=== PATIENT | female | born 1980 | race Caucasian/White ===

== ENCOUNTER → 2017-06-28 | Outpatient (CLI) | payer OTHER | LOC: M RAD 13:41 | DX: N92.4 Excessive bleeding in the premenopausal period (principal) | CPT/HCPCS: 76856 ==

== ENCOUNTER → 2017-07-02 | Outpatient (CLI) | payer OTHER ==
[2017-07-02 19:15] LABS: FREE THYROXINE INDEX 2.7 % (1.3-4.8); THYROID STIMULATING HORMONE 0.761 uIU/ML (0.358-3.740); THYROXINE (T4) 8.6 UG/DL (4.5-12.0)
[2017-07-04 10:53] LABS: PROLACTIN 14.9 NG/ML
[2017-07-04 10:55] LABS: LUTEINIZING HORMONE 5.9 mIU/mL
[2017-07-04 10:56] LABS: FOLLICLE STIMULATING HORMONE 7.6 mIU/mL
[2017-07-05 08:46] LABS: T UPTAKE 31 % (30-39)
== END ==
LOC: M LRY 16:17
DX: N92.4 Excessive bleeding in the premenopausal period (principal)
CPT/HCPCS: 83001

== ENCOUNTER → 2017-07-20 | Outpatient (CLI) | payer OTHER ==
[2017-07-20 12:26] LABS: ESTRADIOL 158.9 PG/ML
[2017-07-21 07:04] LABS: PROGESTERONE 10.4 NG/ML
== END ==
LOC: M LRY 10:13
DX: N92.4 Excessive bleeding in the premenopausal period (principal)

== ENCOUNTER → 2017-08-03 | Outpatient (REF) | payer OTHER ==
[2017-08-06 14:28] LABS: HPV HYBRID CAPTURE II Negative (Negative)
== END ==
LOC: M LAB REF 13:36
DX: Z12.4 Encounter for screening for malignant neoplasm of cervix (principal)
CPT/HCPCS: G0123

== ENCOUNTER → 2017-08-31 | Outpatient (CLI) | payer OTHER ==
[~2017-08-31] MED LIST: ISOVUE-370 76% 100ML VIAL (Q9967) As Ordered
== END ==
LOC: M RADPRO 12:09
DX: D25.9 Leiomyoma of uterus, unspecified (principal); N97.9 Female infertility, unspecified
CPT/HCPCS: 58340

== ENCOUNTER 2017-11-01 13:02 | Day surgery (SDC) | payer OTHER ==
[2017-11-01] MEDS: LR 1,000 ML IV (13:32)
[2017-11-01 13:46] LABS: MEAN CORPUSCULAR HEMOGLOBIN 15.4 pg (27.0-33.0); MEAN CORPUSCULAR HGB CONC 24.6 g/dl (32.0-36.5); MEAN CORPUSCULAR VOLUME 62.6 fl (80.0-96.0); PLATELET COUNT, AUTOMATED 312 10^3/uL (150-450); RED BLOOD COUNT 4.47 10^6/uL (4.00-5.40); RED CELL DISTRIBUTION WIDTH 18.2 % (11.5-14.5); WHITE BLOOD COUNT 7.1 10^3/uL (4.0-10.0)
[2017-11-01 13:48] LABS: CONTROL LINE HCG INT CTR LINE PRESENT; HCG, SERUM QUALITATIVE NEGATIVE (NEGATIVE)
[2017-11-01] MEDS ORDERED: LIDOCAINE 2% INJ 100 MG/5 ML SDV (FOR ANES.) As Ordered (14:05)
[2017-11-01] MEDS ORDERED: PROPOFOL 200 MG/20 ML VIAL As Ordered (14:05)
[2017-11-01] MEDS ORDERED: KETOROLAC 60 MG/2 ML VIAL (J1885) As Ordered (14:05)
[2017-11-01] MEDS ORDERED: dexameTHASONE 4 MG/ML 1ML VIAL (J1100) As Ordered (14:05)
[2017-11-01] MEDS ORDERED: ONDANSETRON 4MG/2ML VIAL (J2405) As Ordered (14:05)
[2017-11-01] MEDS ORDERED: fentaNYL 100 MCG/2 ML INJECTION (J3010) As Ordered (14:06)
[2017-11-01] MEDS ORDERED: MIDAZOLAM INJ 2 MG/2 ML VIAL (J2250) As Ordered (14:06)
[2017-11-01 14:16] LABS: POS COUNT POS FLAG
[2017-11-01 14:17] LABS: HEMOGLOBIN 6.9 g/dl (12.0-15.5)
[2017-11-01] MEDS ORDERED: GLYCOPYRROLATE INJ 0.2 MG/ML 2 ML VIAL As Ordered (14:40)
[2017-11-01] MEDS: PERCOCET 5MG/325MG TAB PO (16:14)
[2017-11-01] MEDS ORDERED: LR 1,000 ML IV (16:15)
[2017-11-01] MEDS ORDERED: PERCOCET 5MG/325MG TAB PO (16:15)
[2017-11-01] MEDS: ONDANSETRON 4MG/2ML VIAL (J2405) IV (16:15)
[2017-11-01] MEDS ORDERED: fentaNYL 100 MCG/2 ML INJECTION (J3010) IV (16:15)
[2017-11-01 16:49] LABS: HEMATOCRIT 23.9 % (36.0-47.0); MEAN CORPUSCULAR HEMOGLOBIN 15.5 pg (27.0-33.0); MEAN CORPUSCULAR HGB CONC 24.7 g/dl (32.0-36.5); MEAN CORPUSCULAR VOLUME 62.7 fl (80.0-96.0); PLATELET COUNT, AUTOMATED 266 10^3/uL (150-450); RED BLOOD COUNT 3.81 10^6/uL (4.00-5.40); RED CELL DISTRIBUTION WIDTH 17.8 % (11.5-14.5); WHITE BLOOD COUNT 7.8 10^3/uL (4.0-10.0)
[2017-11-01 16:53] LABS: HEMOGLOBIN 5.9 g/dl (12.0-15.5)
[2017-11-01] MEDS ORDERED: ACETAMINOPHEN 325 MG TAB As Ordered (17:23)
[2017-11-01] MEDS ORDERED: diphenhydrAMINE 25 MG CAP As Ordered (17:23)
[2017-11-01] MEDS: ACETAMINOPHEN TAB 650MG DOSE (2X325MG) PO (17:30)
[2017-11-01] MEDS: diphenhydrAMINE 25 MG CAP PO (17:30)
[2017-11-01 19:07] LABS: IMMEDIATE SPIN CROSSMATCH 1 2
[2017-11-01] MEDS ORDERED: KETOROLAC 30 MG/ML VIAL (J1885) IV (20:00)
== END 2017-11-01 21:44 | disposition home or self-care (01) ==
LOC: M SDC 13:02
DX: N84.0 Polyp of corpus uteri (principal); Z79.899 Other long term (current) drug therapy; A60.00 Herpesviral infection of urogenital system, unspecified
CPT/HCPCS: 58558

== ENCOUNTER → 2018-09-05 | Outpatient (CLI) | payer OTHER ==
[~2018-09-05] MED LIST changes: +ACYC400T PO; -ISOVUE-370 76% 100ML VIAL (Q9967) As Ordered; +PERCOCET PO
[2018-09-05 11:46] LABS: BASO # 0.1 10^3/uL (0.0-0.2); BASO % 1.4 % (0.0-1.0); EOS # 0.1 10^3/uL (0.0-0.50); EOS % 1.4 % (0.0-3.0); HEMATOCRIT 34.9 % (36.0-47.0); HEMOGLOBIN 11.1 g/dl (12.0-15.5); LYMPH # 1.6 10^3/uL (1.5-4.5); LYMPH % 36.5 % (24.0-44.0); MEAN CORPUSCULAR HEMOGLOBIN 29.4 pg (27.0-33.0); MEAN CORPUSCULAR HGB CONC 31.8 g/dl (32.0-36.5); MEAN CORPUSCULAR VOLUME 92.3 fl (80.0-96.0); MONO # 0.4 10^3/uL (0.0-0.8); MONO % 8.4 % (0.0-5.0); NEUTROPHILS # 2.2 10^3/uL (1.8-7.7); NEUTROPHILS % 52.1 % (36.0-66.0); PLATELET COUNT, AUTOMATED 261 10^3/uL (150-450); RED BLOOD COUNT 3.78 10^6/uL (4.00-5.40); WHITE BLOOD COUNT 4.3 10^3/uL (4.0-10.0)
[2018-09-05 12:23] LABS: FREE T4 0.88 NG/DL (0.76-1.46); PROLACTIN 15.6 NG/ML; THYROID STIMULATING HORMONE 0.742 uIU/ML (0.358-3.740)
== END ==
LOC: M LRY 09:07
PROVIDERS: ATTEND Obstetrics & Gynecology
DX: N92.1 Excessive and frequent menstruation with irregular cycle (principal)

== ENCOUNTER → 2018-10-13 | Outpatient (CLI) | payer OTHER ==
--- NOTE | 2018-10-13 11:19 | REP ---
Clinical: Left first toe pain Technique: AP, lateral, bilateral oblique views left foot . Findings: The osseous structures and joint spaces are intact and normal. There is no evidence for acute fracture or dislocation. Surrounding soft tissues are unremarkable. No subcutaneous emphysema or radiodense foreign body. Impression: Normal left foot series. Electronically Signed by Harry Liu MD 10/13/2018 11:11 A
== END ==
LOC: M RAD 10:37
PROVIDERS: ATTEND Nurse Practitioner Family
DX: M25.572 Pain in left ankle and joints of left foot (principal)

== ENCOUNTER → 2018-10-16 | Outpatient (CLI) | payer OTHER ==
[~2018-10-16] MED LIST changes: +PROHANCE 279.3MG/ML 15ML VIAL (A9576) As Ordered ONE
--- NOTE | 2018-10-17 07:00 | REP ---
MRI PELVIS WITH AND WITHOUT CONTRAST: TECHNIQUE: Multiple sequences obtained in the axial, coronal, and sagittal planes prior to and following the intravenous administration of 11 mL ProHance. Uterus measures approximately 11.4 x 8.3 x 7.9 cm. There is a large heterogeneous mass in the uterus. It measures 6.7 x 5.2 x 5.4 cm. It is hypointense on T1 and on T2 there is predominantly heterogeneous hypointensity, but there are scattered ill-defined foci of T2 hyperintensity. There is mild diffuse heterogeneous enhancement. The mass obliterates the endometrial cavity. This most likely represents a leiomyoma. 7 mm nabothian cyst is seen in the anterior cervix. Ovaries are normal in size with no mass or cyst. There is a very mild amount of free fluid in the cul-de-sac, which is likely physiologic in nature. No adenopathy is seen in the pelvis. Visualized osseous structures demonstrate normal bone marrow signal. There are two or three hypointense foci in the left side of the fibroid probably representing calcifications. Scattered cystic T2 hyperintensity within the fibroid is compatible with cystic degeneration. IMPRESSION: Enlarged uterus containing a large heterogeneous mass most consistent with a large leiomyoma, as discussed in detail above. This obliterates the endometrial cavity. There are two or three hypointense foci in the left side of the fibroid probably representing calcifications. Scattered cystic T2 hyperintensity within the fibroid is compatible with cystic degeneration. Electronically Signed by Marcello Garcia MD 10/18/2018 10:00 A
== END ==
LOC: M RAD 10:40
PROVIDERS: ATTEND Surgery Vascular Surgery
DX: D25.0 Submucous leiomyoma of uterus (principal); N88.8 Other specified noninflammatory disorders of cervix uteri
CPT/HCPCS: 72197; A9576

== ENCOUNTER → 2018-10-25 | Outpatient (CLI) | payer OTHER ==
[~2018-10-25] MED LIST changes: -PROHANCE 279.3MG/ML 15ML VIAL (A9576) As Ordered ONE
[2018-10-25 11:42] LABS: BASO % 0.8 % (0.0-1.0); EOS # 0.1 10^3/uL (0.0-0.5); EOS % 1.2 % (0.0-3.0); HEMATOCRIT 25.9 % (36.0-47.0); HEMOGLOBIN 7.4 g/dl (12.0-15.5); LYMPH # 1.2 10^3/uL (1.5-5.0); LYMPH % 24.9 % (24.0-44.0); MEAN CORPUSCULAR HEMOGLOBIN 26.5 pg (27.0-33.0); MEAN CORPUSCULAR HGB CONC 28.6 g/dl (32.0-36.5); MEAN CORPUSCULAR VOLUME 92.8 fl (80.0-96.0); MONO # 0.4 10^3/uL (0.0-0.8); NEUTROPHILS # 3.2 10^3/uL (1.5-8.5); NEUTROPHILS % 64.9 % (36.0-66.0); PLATELET COUNT, AUTOMATED 366 10^3/uL (150-450); RED BLOOD COUNT 2.79 10^6/uL (4.00-5.40); WHITE BLOOD COUNT 4.9 10^3/uL (4.0-10.0)
== END ==
LOC: M LRY 10:07
PROVIDERS: ATTEND Obstetrics & Gynecology
DX: N92.1 Excessive and frequent menstruation with irregular cycle (principal)

== ENCOUNTER → 2018-11-01 | Outpatient (REF) | payer OTHER ==
[2018-11-01 12:57] LABS: BASO # 0.1 10^3/uL (0.0-0.2); BASO % 1.2 % (0.0-1.0); EOS # 0.1 10^3/uL (0.0-0.5); HEMATOCRIT 35.5 % (36.0-47.0); HEMOGLOBIN 10.1 g/dl (12.0-15.5); LYMPH # 1.7 10^3/uL (1.5-5.0); LYMPH % 34.3 % (24.0-44.0); MEAN CORPUSCULAR HEMOGLOBIN 26.9 pg (27.0-33.0); MEAN CORPUSCULAR HGB CONC 28.5 g/dl (32.0-36.5); MEAN CORPUSCULAR VOLUME 94.4 fl (80.0-96.0); MONO # 0.4 10^3/uL (0.0-0.8); MONO % 7.5 % (0.0-5.0); NEUTROPHILS # 2.8 10^3/uL (1.5-8.5); NEUTROPHILS % 55.8 % (36.0-66.0); PLATELET COUNT, AUTOMATED 401 10^3/uL (150-450); RED BLOOD COUNT 3.76 10^6/uL (4.00-5.40)
== END ==
LOC: M LRY 11:17 → M LABDRAWC 11:17
PROVIDERS: ATTEND Obstetrics & Gynecology
DX: N92.1 Excessive and frequent menstruation with irregular cycle (principal)

== ENCOUNTER → 2018-11-07 | Outpatient (POV) | payer OTHER ==
[~2018-11-07] VITALS: Ht 152.4 cm; Wt 56.8 kg
[2018-11-07 13:40] VITALS: BP 120/66
--- NOTE | 2018-11-08 11:12 | IRCOV ---
[facility] IR Consult Office Visit IR Consult Office Visit DATE: Nov 07, 2018 REASON FOR CONSULTATION/CHIEF COMPLAINT: Menorrhagia. HISTORY OF PRESENT ILLNESS: 38-year-old female presents with menorrhagia for the last 4 years. She describes bleeding every month for at least 15 days where she is physically restricted to the bathroom and cannot get off the toilet. Soaks through pads and packets of tampons within the hour and is unable to leave the house because of such heavy bleeding. She's in constant fear of soaking through clothes. She also describes severe cramping with the periods which is unbearable. She has been on Provera for some years however desires to get and has recently come off Provera. She describes getting lightheaded and almost passing out with her periods. She has required blood transfusions in the past and is on iron tablets. No prior pregnancies or miscarriages. She has had hysteroscopic fibroid removal in the past. Prior Pap smears were negative. No fevers or chills. No loss of appetite or change in weight. No deep vein thrombosis in the legs. ALLERGIES: Please see below. HOME MEDICATIONS: Please see below. PAST MEDICAL HISTORY: 1. Fibroids 2. Kidney stones PAST SURGICAL HISTORY: 1. Lithotripsy 2. Hysteroscopy with myomectomy FAMILY HISTORY: Nonsignificant. SOCIAL HISTORY: Denies smoking, drugs or alcohol. REVIEW OF SYSTEMS: Otherwise negative PHYSICAL EXAMINATION: VITAL SIGNS: Please see below. GENERAL APPEARANCE: Appears well. Comfortable at rest. HEENT: No scleral icterus. RESPIRATORY: Symmetric breath sounds. CARDIOVASCULAR: Normal rate. ABDOMEN: Mildly distended. Soft nontender. No rebound or guarding. EXTREMITIES: Moving all 4 extremities. Calf soft nontender. No pedal edema no varicosities. NEUROLOGICAL: Alert and oriented. PSYCHIATRIC: Appropriate to circumstance. LABORATORY DATA: 11/01/2018 hemoglobin 10.1 hematocrit 35.5 WBC 5.0 platelets 401 09/05/2018 TSH 0.7 T4 0.8 Imaging: I personally reviewed the MRI pelvis from October 2018. There is a large T1 dark and T2 heterogeneous mass filling the endometrial cavity. The endometrial lining is not visible. No T2 hyperintensities in the myometrium to suggest adenomyosis. The uterus is enlarged and distended. ASSESSMENT/PLAN: Given this patient's desire for and literature available on improved pregnancies post myomectomy, I decided to discuss this case further with patient's ENVIRONMENTAL CONSULTANT Dr. Pyle. After this discussion, it is understood that given the size and location of the fibroid she would require open laparotomy and a vertical incision for fibroid removal. This would be a long and technically challenging surgery after which, the uterus would be much weakened, scarred and at risk of rupture from future pregnancies. We feel at this time that fibroid embolization to shrink the fibroid with or without future myomectomy may be a better option for the patient for desired future fertility. Therefore I will go ahead and schedule the patient for the procedure. I spent 30 minutes in consultation with the patient. Thank you for this referral. Allergies Coded Allergies: Kiwi (Verified Allergy, Intermediate, lips and tongue tingle, 10/25/17) Home Medications Scheduled Acyclovir (Acyclovir), 400 MG PO DAILY, (Reported) Scheduled PRN Oxycodone/Acetaminophen (Oxycodone-Acetaminophen 5-325), 1 TAB PO Q6-8HP PRN for PAIN VS, I&O, 24H, Fishbone Vital Signs/I&O Vital Signs Date Time Temp Pulse Resp B/P (MAP) Pulse Ox O2 Delivery O2 Flow Rate FiO2 11/07/18 13:40 98.9 85 16 120/66 (84) 100 DIAZ KRAUSE MD Nov 08, 2018 11:12
== END ==
LOC: M IRPOV 13:41
PROVIDERS: ATTEND Radiology Diagnostic Radiology
DX: N92.0 Excessive and frequent menstruation with regular cycle (principal); N94.6 Dysmenorrhea, unspecified; D25.9 Leiomyoma of uterus, unspecified; Z87.442 Personal history of urinary calculi; Z91.018 Allergy to other foods

== ENCOUNTER → 2019-01-11 | Outpatient (CLI) | payer OTHER ==
[~2019-01-11] MED LIST changes: +EMBOSPHERE MICROSPHERES 500-700UM(MICRONS) 2ML SYRINGE As Ordered ONE; +HEPARIN 1,000 UNITS/ML 10ML VIAL (FOR RADIOLOGY& DIALYSIS ONLY) As Ordered ONE; +IRON27TA2 PO; +ISOVUE-300 61% 50ML VIAL (Q9967) As Ordered ONE; +KETO10TAB PO; +KETOROLAC 30 MG/ML VIAL (J1885) As Ordered ONE; +KETOROLAC TROMETHAMINE 10 MG TAB PO SCH; +LIDOCAINE 1% MDV 20ML VIAL As Ordered ONE; +MEPERIDINE INJ 25 MG/ML VIAL (J2175) As Ordered ONE; +MIDAZOLAM INJ 2 MG/2 ML VIAL (J2250) As Ordered ONE; +NITROGLYCERIN IN D5W 25MG/250ML (100MCG/ML) As Ordered ONE; +ONDA4INJ48 IV; +ONDANSETRON 4MG/2ML VIAL (J2405) As Ordered ONE; +PERCOCET 5MG/325MG TAB As Ordered ONE; +PROMETHAZINE 25 MG TAB PO SCH; +PROMETHAZINE INJ 25 MG/ML VIAL (J2550) As Ordered ONE; +VERAPAMIL HCL 5 MG/2 ML VIAL As Ordered ONE; +ceFAZolin 1GM INJ (J0690 PER 500MG) As Ordered ONE; +diphenhydrAMINE INJ 50MG/ML VIAL (J1200) As Ordered ONE; +fentaNYL 100 MCG/2 ML INJECTION (J3010) As Ordered ONE
[2019-01-11 07:19] LABS: HEMATOCRIT 28.8 % (36.0-47.0); MEAN CORPUSCULAR HEMOGLOBIN 21.7 pg (27.0-33.0); MEAN CORPUSCULAR HGB CONC 27.8 g/dl (32.0-36.5); MEAN CORPUSCULAR VOLUME 78.3 fl (80.0-96.0); PLATELET COUNT, AUTOMATED 371 10^3/uL (150-450); RED BLOOD COUNT 3.68 10^6/uL (4.00-5.40); WHITE BLOOD COUNT 4.2 10^3/uL (4.0-10.0)
[2019-01-11 07:36] LABS: INR 1.12; PROTHROMBIN TIME 14.1 SECONDS (11.8-14.0)
[2019-01-11 07:44] LABS: HCG, SERUM QUALITATIVE NEGATIVE (NEGATIVE)
[2019-01-11 07:49] LABS: BLOOD UREA NITROGEN 9 MG/DL (7-18); CALCIUM LEVEL 8.7 MG/DL (8.5-10.1); CARBON DIOXIDE LEVEL 25 MEQ/L (21-32); CHLORIDE LEVEL 108 MEQ/L (98-107); CREATININE FOR GFR 0.76 MG/DL (0.55-1.30); GLOMERULAR FILTRATION RATE > 60.0 (>60); GLUCOSE, FASTING 96 MG/DL (70-100); POTASSIUM SERUM 4.4 MEQ/L (3.5-5.1); SODIUM LEVEL 140 MEQ/L (136-145)
[2019-01-11 07:50] LABS: ALT/SGPT 21 U/L (12-78); BILIRUBIN,TOTAL 0.4 MG/DL (0.2-1.0); TOTAL PROTEIN 7.2 GM/DL (6.4-8.2)
--- NOTE | 2019-01-11 10:27 | POST-OPPD ---
Postoperative Procedure Note Date Of Procedure: Jan 11, 2019 Time Of Procedure: 10:26 PREOPERATIVE DIAGNOSIS: fibroids. POSTOPERATIVE DIAGNOSIS: same FINDINGS: fibroids PROCEDURE: CHANTELLE SURGEON: zbigniew ANESTHESIA: mod sed ESTIMATED BLOOD LOSS: < 5 ml COMPLICATIONS: none POSTOPERATIVE CONDITION: stable DIAZ KRAUSE MD Jan 11, 2019 10:27
--- NOTE | 2019-01-11 10:28 | IRHP ---
[facility] IR Pre-Procedure H & P General Date of Service: Jan 11, 2019 Procedure: Same Day Surgery Interval History and Physical I have seen the patient and reviewed last H & P performed within 30 days. There is no significant interval change. History of Present Illness Chief Complaint The patient is a 38-year-old female admitted with a reason for visit of Sub Mucus Leiomyoma Of Uterus. PRE-PROCEDURE DIAGNOSIS: fibroids HEART: normal rate. LUNGS: normal breathing at rest. ASA Classification ASA Classification: I-Healthy Mallampati Score: I NPO: Yes Problems with prior sedation: No Obstructive Sleep Apnea: No Plan moderate sedation Allergies Coded Allergies: Kiwi (Verified Allergy, Intermediate, lips and tongue tingle, 01/08/19) pineapple (Verified Allergy, Intermediate, LIPS TINGLE, 01/08/19) Home Medications Scheduled Acyclovir (Acyclovir), 400 MG PO DAILY, (Reported) Ferrous Gluconate (Iron), 27 MG PO DAILY, (Reported) Scheduled PRN Oxycodone/Acetaminophen (Oxycodone-Acetaminophen 5-325), 1 TAB PO Q6-8HP PRN for PAIN VS, I&O, 24H, Fishbone Vital Signs/I&O Vital Signs Date Time Temp Pulse Resp B/P (MAP) Pulse Ox O2 Delivery O2 Flow Rate FiO2 01/11/19 10:20 59 16 99 01/11/19 09:55 Nasal Cannula 3 01/11/19 06:57 98.8 Laboratory Data 24H LABS Laboratory Tests 2 01/11/19 07:04: Nucleated Red Blood Cells % (auto) 0.0, Prothrombin Time 14.1H, Prothromb Time International Ratio 1.12, Anion Gap 7L, Glomerular Filtration Rate > 60.0, Calcium Level 8.7, Total Bilirubin 0.4, Aspartate Amino Transf (AST/SGOT) 35, Alanine Aminotransferase (ALT/SGPT) 21, Alkaline Phosphatase 110, Total Protein 7.2, Albumin 4.0, Albumin/Globulin Ratio 1.25, Human Chorionic Gonadotropin, Qual NEGATIVE CBC/BMP Laboratory Tests 01/11/19 07:04 DIAZ KRAUSE MD Jan 11, 2019 10:28
[2019-01-11] MEDS: HYDROMORPHONE HCL 0.5 MG/ 0.5 ML SYRINGE (J1170 PER 1) IV PRN (10:43)
[2019-01-11] MEDS: PERCOCET 5MG/325MG TAB PO PRN (13:05)
[2019-01-11] MEDS: ONDANSETRON 4MG/2ML VIAL (J2405) IV PRN (14:54)
[2019-01-11] MEDS: KETOROLAC TROMETHAMINE 10 MG TAB PO PRN (16:25)
[2019-01-11 16:50] VITALS: BP 145/69
--- NOTE | 2019-01-12 10:29 | REP ---
IR Trans radial Uterine Fibroid Embolization. IR pelvic arteriogram. IR Bilateral uterine artery sub selective catheterization. IR bilateral uterine artery embolization. IR moderate sedation. Clinical Information: Uterine fibroids. Menorrhagia. Physician: Dr Jimenes.Procedure: The patient was advised of the benefits, risks, and alternatives of the procedure and informed consent was obtained.A time out was performed with verification of the patient's name, MRN, site of procedure, and type of procedure to be performed. The patient was positioned in the supine position on the angiographic table. The site was prepped and draped in the usual sterile fashion.Moderate sedation was performed by the physician including the presence of an independent trained observer that assisted in monitoring the patient's level of consciousness and physiological status. Following the administration of Fentanyl and Versed, the physician spent 90 minutes of continuous [id number] time with the patient. A Barbeu test was performed of the left wrist and this demonstrates type A wave form. A interior painter radiograph reveals no gross abnormality. Ultrasound of the left wrist was performed and this demonstrates a patent pulsatile left radial artery measuring 2.1 mm. The left radial artery was accessed with a dedicated radial access kit. An 018 wire was advanced through the needle into the radial artery. The needle was removed and a 5-Korean slender radial sheath was advanced over the wire. A radial cocktail of 2.5 mg Verapamil, nitroglycerin 200 mcg and heparin 3000 units was administered through the radial sheath using hemodilution technique. A 5-[place]orean pigtail catheter in conjunction with a Glidewire was advanced through the radial sheath under fluoroscopy guidance and used to catheterize the infra renal abdominal aorta. An infra renal abdominal aortogram and pelvic arteriogram was performed and this demonstrates enlarged bilateral uterine arteries supplying hypervascular fibroids. No ovarian artery supply to the fibroids. The pigtail catheter was exchanged over a wire for a [place] catheter. This was used to catheterize the left internal iliac artery. An arteriogram was performed and this demonstrates patent internal and external iliac artery. Hypertrophied left uterine artery. The diagnostic catheter in conjunction with a wire was used to catheterize a second order branch off the anterior division of the left internal iliac artery. Arteriogram was performed and this demonstrates catheterization of a vesicular branch supplying the bladder. The catheter was retracted back into the internal iliac artery. The catheter in conjunction with a wire was used under fluoroscopy guidance to catheterize the right internal iliac artery. An arteriogram was performed and this demonstrates patent anterior and posterior divisions of the right internal iliac artery. A micro catheter micro wire was inserted through the diagnostic catheter and under fluoroscopy guidance used to super selectively catheterize the right uterine artery. An arteriogram was performed and this demonstrate successful catheterization of the right uterine artery and supply to hypervascular fibroids. No non target supply from this location. Multiple vials of 5-700 micron Embospheres were used to embolize the right uterine artery from this location. A postembolization arteriogram was performed which demonstrates appropriate stasis in the right uterine artery. No further hypervascular supply to fibroids from the right uterine artery. The micro catheter was removed. The diagnostic catheter in conjunction with a Glidewire was used to catheterize the left internal iliac artery. An arteriogram was performed and this demonstrates patent posterior and anterior division of the left internal iliac artery. A Micro catheter and micro wire were inserted through the diagnostic catheter and used to subselectively catheterize the left uterine artery. An arteriogram was performed and this demonstrates successful catheterization of the left uterine artery and supply to hypervascular fibroids from this location. No non target supply from this location. Vials of 5-700 micron Embospheres were used to embolize the left uterine artery from this location. A post embolization arteriogram demonstrates appropriate stasis in the distal left uterine artery and no further hypervascular supply to fibroids. The micro catheter was removed. The diagnostic catheter was retracted back into the aorta. A post embolization arteriogram was performed from the infrarenal abdominal aorta. This demonstrates satisfactory bilateral uterine artery embolization and no further supply to fibroids. The catheter was removed. A TR band was applied per protocol to the left wrist and radial sheath was removed, hemostasis achieved. Patient tolerated the procedure well and was transferred to PRU in stable condition. Complications: None. Estimated blood loss: Less than 5 ml. Impression: 1. Pelvic arteriogram demonstrates bilateral enlarged hypertrophied uterine arteries supplying uterine fibroids. 2. Successful bilateral uterine artery embolization. 3. Patient to follow-up in IR clinic in 6 weeks. Thank you for this referral. Electronically Signed by Romana Jimenes MD 01/12/2019 10:28 A
== END ==
LOC: M IRPRO 06:37
PROVIDERS: ATTEND Radiology Diagnostic Radiology
DX: D25.0 Submucous leiomyoma of uterus (principal); N92.0 Excessive and frequent menstruation with regular cycle

== ENCOUNTER → 2019-02-20 | Outpatient (POV) | payer OTHER ==
[~2019-02-20] VITALS: Ht 149.9 cm; Wt 54.5 kg
[~2019-02-20] MED LIST changes: -EMBOSPHERE MICROSPHERES 500-700UM(MICRONS) 2ML SYRINGE As Ordered ONE; -HEPARIN 1,000 UNITS/ML 10ML VIAL (FOR RADIOLOGY& DIALYSIS ONLY) As Ordered ONE; -ISOVUE-300 61% 50ML VIAL (Q9967) As Ordered ONE; -KETOROLAC 30 MG/ML VIAL (J1885) As Ordered ONE; -KETOROLAC TROMETHAMINE 10 MG TAB PO SCH; -LIDOCAINE 1% MDV 20ML VIAL As Ordered ONE; -MEPERIDINE INJ 25 MG/ML VIAL (J2175) As Ordered ONE; -MIDAZOLAM INJ 2 MG/2 ML VIAL (J2250) As Ordered ONE; -NITROGLYCERIN IN D5W 25MG/250ML (100MCG/ML) As Ordered ONE; -ONDANSETRON 4MG/2ML VIAL (J2405) As Ordered ONE; -PERCOCET 5MG/325MG TAB As Ordered ONE; -PROMETHAZINE 25 MG TAB PO SCH; -PROMETHAZINE INJ 25 MG/ML VIAL (J2550) As Ordered ONE; -VERAPAMIL HCL 5 MG/2 ML VIAL As Ordered ONE; -ceFAZolin 1GM INJ (J0690 PER 500MG) As Ordered ONE; -diphenhydrAMINE INJ 50MG/ML VIAL (J1200) As Ordered ONE; -fentaNYL 100 MCG/2 ML INJECTION (J3010) As Ordered ONE
[2019-02-20 08:45] VITALS: BP 128/70
--- NOTE | 2019-02-21 08:21 | IRPN ---
[facility] IR Progress Note IR Progress Note DATE: Feb 20, 2019 FOLLOW-UP: Status post uterine fibroid embolization early January 2019. Patient describes 7-10 days of cramping after the procedure. Everything is well since that time. No fevers or chills. Had a period around [place] time which was light and lasted only 4 days. No intermenstrual bleeding. No cramping. Feels energy levels are better. ON EXAMINATION: Left radial access site soft nontender. No pulsatile mass. Good radial pulse. Warm hand with good perfusion. Patient appears to be in good spirits. IMPRESSION: Doing well status post uterine fibroid embolization. Desired results are achieved. Fibroids will continue to shrink over the next 6-8 months after which evaluation with ultrasound may be performed. Patient to follow-up with [facility] at that time and discuss whether or not a myomectomy is needed. In the meantime, continue healthy diet, exercise and sexual activity. Thank you for this referral Cc Dr. Pyle Allergies Coded Allergies: Kiwi (Verified Allergy, Intermediate, lips and tongue tingle, 01/08/19) pineapple (Verified Allergy, Intermediate, LIPS TINGLE, 01/08/19) VS,Fishbone, I+O VS, Fishbone, I+O Vital Signs Date Time Temp Pulse Resp B/P (MAP) Pulse Ox O2 Delivery O2 Flow Rate FiO2 02/20/19 08:45 98.2 96 18 128/70 (89) 100 Room Air DIAZ KRAUSE MD Feb 21, 2019 08:21
== END ==
LOC: M IRPOV 08:36
PROVIDERS: ATTEND Radiology Diagnostic Radiology
DX: Z48.816 Encounter for surgical aftercare following surgery on the genitourinary system (principal); D25.9 Leiomyoma of uterus, unspecified